=== PATIENT | female | born 1955 ===

== ENCOUNTER → 2020-08-14 | Outpatient (CLI) | payer BC ==
--- NOTE | 2020-08-14 12:20 | RAD ---
US GDE NDL BX/ASPIR/INJ/LOC Clinical Indication: Reason: FNA THYROID NODULE CAT 4 / Spl. Instructions: / History: Comparison: Thyroid ultrasound 07/25/2020, D[facility]. Procedure: The risks, alternatives, and benefits of the procedure are discussed with the patient. Written inform ed consent is obtained. A time out procedure is performed. Neck prepped and draped in normal sterile fashion. A medial approach is utilized. 1% lidocaine was injected into the skin and soft tissue along route to the nodule of the thyroid. 4 s eparate passes were made with a 22-gauge needle. To and fro movement of the needle was performed in t he nodule while aspiration was applied. Hemostasis is achieved. The patient tolerated the procedure w ell. There is no immediate complication. IMPRESSION: Ultrasound guided fine needle aspiration of a right thyroid nodule. Electronically signed by: Kentrell Alvarez MD (08/14/2020 12:17 PM) [id number]
--- NOTE | 2020-08-15 16:12 | PATHOLOGY ---
Note [facility] Accession Number: [id number] TESTS RESULT FLAG UNITS REF RANGE LAB Clinician Provided Cytology Information No. of containers..01 Other (Miscellaneous) Source: RIGHT THYROID DIAGNOSIS: RIGHT THYROID INADEQUATE, INSUFFICIENT CELLS FOR STUDY. [place] CATEGORY I. NONDIAGNOSTIC: VIRTUALLY ACELLULAR SPECIMEN. THIS INTERPRETATION INCLUDES EVALUATION OF A CELL BLOCK. Signed out by: 02 Jass Torres MD, Pathologist NPI- [id number] Performed by: Dari Mosquera, Lead Producer ([facility]) Gross description: 01 30ML, RED, 2FX 4AD /LCS 08/15/2020 0628 Local FLAG LEGEND: L-Low Normal,H-High Normal,LL-Alert Low,HH-Alert High <-Panic Low,>-Panic High,A-Abnormal,AA-Critical Abnormal Performed at: [address] [place] [address] Alli Wheat MD, [address] [place] [id number] Jass Torres MD, Specimen Comment: A courtesy copy of this report has been sent to [phone], [phone] Specimen Comment: [id number] Specimen Comment: Report sent to DR TORRES / DR PAREKH Performed at: [address], [place], [place] [id number] MD Alli Wheat MD Phone: [phone]
== END | disposition home or self-care (01) ==
LOC: US 08:35
PROVIDERS: ATTEND Internal Medicine
DX: E04.1 Nontoxic single thyroid nodule (principal); Z79.899 Other long term (current) drug therapy
CPT/HCPCS: 10005; 76942; 88173; 88305